=== PATIENT | female | born 1995 | race Caucasian/White ===

== ENCOUNTER 2019-06-10 06:54 | Day surgery (SDC) | payer OTHER ==
[~2019-06-10] VITALS: Ht 162.6 cm; Wt 59.2 kg
[2019-06-10 07:44] VITALS: BP 117/75; PULSE 73; TEMP 97.4
[2019-06-10 09:57] VITALS: BP 111/69; PULSE 83
--- NOTE | 2019-06-10 09:57 | NUR ---
Patient returns to room 3 per cart from surgery and is restless, moving around on the cart, pulling at IV tubing and blood pressure cuff. Shivering and warm blankets on. Mother in room and attempts to calm patient. Dr. Rock in the room by cart. Temp 98.9 and room air sats 90%. Will not leave pulse ox on finger. Opens eyes briefly and looks around the room. Siderails up x2 nurse stays at bedside. Mother states that the patient wakes up badly from anesthesia.
[2019-06-10 10:12] VITALS: BP 104/62; PULSE 86
--- NOTE | 2019-06-10 10:12 | NUR ---
Calmer now and is oriented to person and place. Keeps eyes closed and answers questions. Mother remains in room. IV fluids infusing. Right foot dressing dry.
[2019-06-10 10:27] VITALS: BP 96/63; PULSE 74
--- NOTE | 2019-06-10 10:27 | NUR ---
Resting calmly and quietly on the cart with eyes closed. Mother in the room. Foot of cart elevated. Post on shoe on the right foot.
[2019-06-10] MEDS ORDERED: NORCO 325 MG-51 TAB PO (10:31)
[2019-06-10 10:42] VITALS: BP 103/57; PULSE 71
--- NOTE | 2019-06-10 10:42 | NUR ---
Awake and alert. Room air sats 100%. Sipping on water. Denies pain or nausea.
[2019-06-10 10:57] VITALS: BP 105/77; PULSE 66
--- NOTE | 2019-06-10 10:57 | NUR ---
Eating muffin and drinking water. Continues to deny pain or nausea. States that she feels sleepy.
--- NOTE | 2019-06-10 11:20 | NUR ---
Assisted up to the bathroom and ambulates with one person and post-op shoe on. Tolerates activity well and dressing remains dry on the right foot. Returns to room and IV discontinued. Site is free of redness. Patient dresses self and mother remains in the room.
--- NOTE | 2019-06-10 11:39 | NUR ---
Dismissal instructions signed and voices understanding of follow up and home cares.
--- NOTE | 2019-06-10 11:43 | NUR ---
Patient dismissed to home driven by mother and taken to the front door per wheelchair and assisted into car by this RN with dismissal instructuons in hand. Provided script for [facility].
== END 2019-06-10 11:43 | disposition home or self-care (01) ==
LOC: SDCO 06:54
DX: M20.11 Hallux valgus (acquired), right foot (principal); M21.611 Bunion of right foot; Z88.1 Allergy status to other antibiotic agents; Z83.3 Family history of diabetes mellitus; J45.990 Exercise induced bronchospasm; Z82.3 Family history of stroke; Z82.49 Family history of ischemic heart disease and other diseases of the circulatory system; Z84.1 Family history of disorders of kidney and ureter; Z80.8 Family history of malignant neoplasm of other organs or systems; Z80.0 Family history of malignant neoplasm of digestive organs; Z82.62 Family history of osteoporosis
CPT/HCPCS: J1885; J2405; J2704; J3010; J7120

== ENCOUNTER 2020-09-12 10:14 | Emergency (ER) | payer OTHER ==
[~2020-09-12] VITALS: Ht 162.6 cm; Wt 56.8 kg
[~2020-09-12 10:14] MED LIST: NORCO 325 MG-51 TAB PO
[2020-09-12 10:15] VITALS: TEMP 97.6
[2020-09-12] MEDS ORDERED: PRENATAL TABLET PO (10:19)
[2020-09-12] MEDS ORDERED: ZOFRAN 4MG T4 MG/TAB PO (10:19)
[2020-09-12 10:48] LABS: COLLECTION METHOD CLEAN CATCH
[2020-09-12 10:56] LABS: BASO % 0.5 % (0.0-2.0); EOS % 0.2 % (0-4.0); GRAN # 7.3 (1.4-6.5); GRAN % 82.4 % (42.2-75.2); HEMATOCRIT 38.3 % (37.0-47.0); HEMOGLOBIN 13.5 g/dl (12.5-16.0); LYMPH % 11.6 % (20.0-51.0); MEAN CELL VOLUME 89 fl (80.0-100.0); MEAN CORPUSCULAR HEMOGLOBIN 31 pg (27.0-31.0); MEAN CORPUSCULAR HGB CONC 35 g/dl (33.0-37.0); MEAN PLATELET VOLUME 10.3 fl (7.4-10.4); MONO # 0.4 (0.1-0.6); MONO % 4.8 % (1.7-9.3); PLATELET COUNT 214 K/mm3 (130-400); RED BLOOD COUNT 4.33 M/mm3 (4.10-5.30); REDCELL DISTRIBUTION WIDTH-CV 12.2 % (11.5-14.5)
[2020-09-12 11:11] LABS: ALBUMIN 3.9 gm/dL (3.5-5.0); BILIRUBIN,TOTAL 0.6 mg/dL (0.0-1.0); CALCIUM 9.3 mg/dL (8.4-10.2); CREATININE, serum 0.48 (0.52-1.25); POTASSIUM 3.6 mmol/L (3.4-5.0); TOTAL PROTEIN 7.2 gm/dL (6.4-8.2)
[2020-09-12 11:12] LABS: MUCOUS Present /lpf; PH 6 (5-8); URINE APPEARANCE Hazy; URINE BACTERIA Rare /hpf; URINE BILIRUBIN Negative (NEGATIVE); URINE BLOOD Negative (NEGATIVE); URINE COLOR Yellow; URINE GLUCOSE Negative (NEGATIVE); URINE KETONE 1+ (NEGATIVE); URINE LEUKOCYTE ESTERASE Trace (NEGATIVE); URINE NITRATE Negative (NEGATIVE); URINE PROTEIN(semi-quant) 2+ (NEGATIVE); URINE RBC 0-2 /hpf
[2020-09-12 11:47] VITALS: BP 91/57; PULSE 87
== END 2020-09-12 12:00 | disposition home or self-care (01) ==
LOC: COL.ER 10:14
PROVIDERS: Physician Assistant
DX: O99.352 Diseases of the nervous system complicating pregnancy, second trimester (principal); R55 Syncope and collapse; O26.892 Other specified pregnancy related conditions, second trimester; E86.0 Dehydration; Z88.1 Allergy status to other antibiotic agents; Z3A.15 15 weeks gestation of pregnancy
CPT/HCPCS: J2765; J7030

== ENCOUNTER → 2020-11-29 | Outpatient (CLI) | payer OTHER ==
[~2020-11-29] MED LIST changes: +MOTRIN 800800 MG/TAB PO; +NATURAL IRON65 MG; +PRENATAL TABLET PO; +PRILOTC; +ZOFRAN 4MG T4 MG/TAB PO
== END ==
LOC: COL.CARD 11:17
DX: R55 Syncope and collapse (principal)

== ENCOUNTER 2020-12-12 11:04 | Emergency (ER) | payer OTHER ==
[~2020-12-12] VITALS: Ht 162.6 cm; Wt 63.6 kg
[~2020-12-12 11:04] MED LIST changes: -MOTRIN 800800 MG/TAB PO; -NATURAL IRON65 MG; -PRILOTC
[2020-12-12 11:20] VITALS: TEMP 98.3
[2020-12-12 12:07] LABS: MEAN CELL VOLUME 89 fl (80.0-100.0); MEAN CORPUSCULAR HEMOGLOBIN 30 pg (27.0-31.0); MEAN CORPUSCULAR HGB CONC 33 g/dl (33.0-37.0); MEAN PLATELET VOLUME 10.5 fl (7.4-10.4); PLATELET COUNT 204 K/mm3 (130-400); REDCELL DISTRIBUTION WIDTH-CV 12.1 % (11.5-14.5)
[2020-12-12 12:18] LABS: ALBUMIN 3.3 gm/dL (3.5-5.0); BILIRUBIN,TOTAL 0.3 mg/dL (0.0-1.0); CALCIUM 9.1 mg/dL (8.4-10.2); CREATININE, serum 0.39 (0.52-1.25); POTASSIUM 3.6 mmol/L (3.4-5.0); TOTAL PROTEIN 6.2 gm/dL (6.4-8.2)
[2020-12-12 12:19] LABS: HEMATOCRIT 32.9 % (37.0-47.0)
[2020-12-12 12:23] LABS: BAND 18 % (0-10); LYMPHOCYTE 18 % (20.0-51.0); NEUTROPHILS 59 % (42.0-75.2); PLATELET ESTIMATE NORMAL (NORMAL)
--- NOTE | 2020-12-12 13:30 | NUR ---
heart monitor on. heart rate 140s with accelerations noted. No decels noted. Denies any contractions.
[2020-12-12 14:38] VITALS: BP 112/68; PULSE 89
== END 2020-12-12 14:39 | disposition home or self-care (01) ==
LOC: COL.ER 11:04
PROVIDERS: Personal Emergency Response Attendant
DX: O99.280 Endocrine, nutritional and metabolic diseases complicating pregnancy, unspecified trimester (principal); E86.0 Dehydration; O26.899 Other specified pregnancy related conditions, unspecified trimester; R55 Syncope and collapse; Z3A.00 Weeks of gestation of pregnancy not specified
CPT/HCPCS: J7030

== ENCOUNTER 2021-03-03 06:18 | Inpatient (IN) | payer OTHER, BC ==
[2021-03-03] VITALS (50 sets, daily range): BP systolic 94–146; BP diastolic 52–82; PULSE 72–111; TEMP 97.4–99
[~2021-03-03] VITALS: Ht 162.6 cm; Wt 76.8 kg
--- NOTE | 2021-03-03 06:30 | NUR ---
Admits to L&D for scheduled induction of labor. Accompanied by spouse, Cirilo.
--- NOTE | 2021-03-03 07:07 | NUR ---
Pit start @ 2mU/min after reactive strip obtained.
[2021-03-03 07:11] LABS: BASO % 0.4 % (0.0-2.0); EOS # 0.1 K/mm3 (0.0-0.7); EOS % 0.5 % (0-4.0); GRAN # 6.3 K/mm3 (1.4-6.5); GRAN % 66.4 % (42.2-75.2); HEMOGLOBIN 11.2 g/dl (12.5-16.0); LYMPH # 2.2 K/mm3 (1.2-3.4); LYMPH % 23.5 % (20.0-51.0); MEAN CELL VOLUME 83 fl (80.0-100.0); MEAN CORPUSCULAR HEMOGLOBIN 27 pg (27.0-31.0); MEAN CORPUSCULAR HGB CONC 33 g/dl (33.0-37.0); MEAN PLATELET VOLUME 10.4 fl (7.4-10.4); MONO # 0.8 K/mm3 (0.1-0.6); MONO % 8.3 % (1.7-9.3); PLATELET COUNT 224 K/mm3 (130-400); RED BLOOD COUNT 4.11 M/mm3 (4.10-5.30); REDCELL DISTRIBUTION WIDTH-CV 13.4 % (11.5-14.5)
[2021-03-03] MEDS ORDERED: NATURAL IRON65 MG (07:11)
[2021-03-03 07:12] LABS: HEMATOCRIT 34.1 % (37.0-47.0)
[2021-03-03] MEDS ORDERED: PRILOTC (07:12)
--- NOTE | 2021-03-03 08:06 | NUR ---
Assisted up to BR @ this time.
--- NOTE | 2021-03-03 08:17 | NUR ---
Note late deceleration @ 0815. Upon entrance to room @ 0817, note patient in supine position. Education provided on making sure to never be completely flat on back. Repositioned to left lateral at this time.
--- NOTE | 2021-03-03 09:10 | NUR ---
Up to BR @ this time.
--- NOTE | 2021-03-03 10:04 | NUR ---
1004- here. 1005-AROM by , clear fluid.
--- NOTE | 2021-03-03 10:40 | NUR ---
Assisted up to BR @ this time.
--- NOTE | 2021-03-03 11:15 | NUR ---
Assited up to BR @ this time.
--- NOTE | 2021-03-03 12:02 | NUR ---
Assisted up to BR @ this time.
--- NOTE | 2021-03-03 12:30 | NUR ---
Requests epidural @ this time. LR bolus begun. 1232-Patient assisted up to bathroom. 1235-CYNDI Page, notified.
--- NOTE | 2021-03-03 12:30 | NUR ---
Up to BR prior to epidural placement.
--- NOTE | 2021-03-03 13:03 | NUR ---
Repositioned to right lateral with peanut ball.
--- NOTE | 2021-03-03 13:12 | NUR ---
Repositioned from right lateral to left lateral with peanut ball.
--- NOTE | 2021-03-03 13:24 | NUR ---
Ephedrine 10 mg administered by this freelance writer at this time with explanation to patient et spouse. Verbalize understanding.
--- NOTE | 2021-03-03 14:03 | NUR ---
scalp electrode placed by this automobile service writer with explanation to patient. Verblizes understanding.
--- NOTE | 2021-03-03 14:20 | NUR ---
Roles here for evaluation. SVE 5-0. Patient repositioned from sitting upright in jonny position to right lateral with peanut ball.
--- NOTE | 2021-03-03 14:55 | NUR ---
Rate of pitocin decreased from 20 mU/min to 10mU/min at this time. Repositioned to left lateral with peanut ball, but quickly repositioned to wedged right after, after noting prolonged deceleration. notified.
--- NOTE | 2021-03-03 15:07 | NUR ---
Pit off @ this time per verbal order. Note has reviewed the strip, updated to latest SVE.
--- NOTE | 2021-03-03 15:37 | NUR ---
Pit restart @ 6mU/min per 's verbal order, after noting patient still has cervix remaining.
--- NOTE | 2021-03-03 16:16 | NUR ---
First push attempt with instruction.
--- NOTE | 2021-03-03 16:40 | NUR ---
Repositioned in jonny position to encourage descent of head.
--- NOTE | 2021-03-03 16:40 | NUR ---
Pushing efforts paused at this time. Kaylee Bianchi CRNA, in to turn epidural pump down, as noted patient reports she can't feel anything. Pushing efforts not effective. Will allow to labor down. notified.
--- NOTE | 2021-03-03 16:55 | NUR ---
Repositioned for right lying side release. This journalists and other writers remains in room with patient.
--- NOTE | 2021-03-03 17:03 | NUR ---
Repositioned in left lying side release.
--- NOTE | 2021-03-03 17:09 | NUR ---
Repositioned in exaggerated runner's on left side, using peanut ball.
--- NOTE | 2021-03-03 18:15 | NUR ---
Roles here for delivery. Nursery nurse notified.
--- NOTE | 2021-03-03 18:21 | NUR ---
182-Spontaneous vaginal delivery of head by . Double nuchal reduced prior to delivery of shoulders. Note patient sobbing, not giving any pushing efforts after delivery of head, resulting in 30 second shoulder dystocia. 182-Spontaneous vaginal delivery of male infant by at this time. 182-Spontaneous vaginal delivery of placenta by . Pit bolus begun immediately following. repairs small 2nd degree perineal laceration with 2-[address]-1. Bedside report given to DIPAK Brumfield, who will resume care from this point forward.
[2021-03-03] MEDS ORDERED: MOTRIN 800800 MG/TAB PO (22:17)
[2021-03-04 02:30] VITALS: BP 97/57; PULSE 85; TEMP 97.9
[2021-03-04 08:30] VITALS: BP 107/58; PULSE 97; TEMP 97.8
--- NOTE | 2021-03-04 11:15 | NUR ---
Sample Stitcher offered congrats to patient while spouse was in room.
[2021-03-04 13:00] VITALS: BP 107/61; PULSE 69; TEMP 98.4
[2021-03-04 17:00] VITALS: BP 103/64; PULSE 80; TEMP 98.1
[2021-03-04 19:15] VITALS: BP 105/62; PULSE 69; TEMP 97.9
[2021-03-05 07:15] VITALS: BP 115/65; PULSE 75; TEMP 98.3
== END 2021-03-05 13:27 | disposition home or self-care (01) | DRG 807 ==
LOC: LDR 06:18 → OB 14:41
PROVIDERS: ADMIT Obstetrics & Gynecology
PROC: 10E0XZZ Delivery of Products of Conception, External Approach (ICD-10-PCS; principal; 2021-03-03)
PROC: 0KQM0ZZ Repair Perineum Muscle, Open Approach (ICD-10-PCS; 2021-03-03)
PROC: 10907ZC Drainage of Amniotic Fluid, Therapeutic from Products of Conception, Via Natural or Artificial Opening (ICD-10-PCS; 2021-03-03)
PROC: 3E033VJ Introduction of Other Hormone into Peripheral Vein, Percutaneous Approach (ICD-10-PCS; 2021-03-03)
DX: O99.892 Other specified diseases and conditions complicating childbirth (principal); Z37.0 Single live birth; O66.0 Obstructed labor due to shoulder dystocia; R55 Syncope and collapse; O69.2XX0 Labor and delivery complicated by other cord entanglement, with compression, not applicable or unspecified; O69.81X0 Labor and delivery complicated by cord around neck, without compression, not applicable or unspecified; O70.1 Second degree perineal laceration during delivery; Z3A.39 39 weeks gestation of pregnancy
CPT/HCPCS: J2590; J7120

== ENCOUNTER 2022-07-02 09:59 | Outpatient (CLI) | payer OTHER, BC ==
[~2022-07-02] VITALS: Ht 162.6 cm; Wt 78.6 kg
[~2022-07-02 09:59] MED LIST changes: +MOTRIN 800800 MG/TAB PO; +NATURAL IRON65 MG; +PRILOTC; +TYLENOL 500MG500 MG PO
[2022-07-02 10:30] VITALS: BP 141/70; PULSE 129; TEMP 98.4
--- NOTE | 2022-07-02 10:30 | NUR ---
1000- Pt arrives on unit via wheelchair with complaints of left flank pain and vomitting. Pt changes into gown. 1010- Pt into bed. EFM x2 for twins and TOCO on and tracing. O2 sat monitor on and tracing maternal HR. Assessments completed. Pt states she was at the hospital yesterday for same issues but having no improvement. States they diagnosed her with a UTI, gave her one dose of antibiotic PO and Zofran then sent her home with RX for antibiotic. Pt states she has not filled RX since she called the office this morning and they told her to come back to hospital. Pt states she has vomitted 4 times since midnight, not keeping fluids or food down. Pt states her back pain is constant but is intermittantly worse. Pt rates pain 10/10. Pt denies VB, LOF, UCs. States she feels abd tightening but not painful. Pt also complains of constipation, states today is day 5 of no BM. Pt appears uncomfortable, unable to sit still in bed. Difficult to monitor babies due to maternal movement.
[2022-07-02 11:00] VITALS: PULSE 123
[2022-07-02 11:22] LABS: COLLECTION METHOD CLEAN CATCH
[2022-07-02] MEDS ORDERED: MACROBID 1100 MG/CAP PO (11:28)
[2022-07-02] MEDS ORDERED: ZOFRAN ODT4 MG PO (11:28)
[2022-07-02 11:30] LABS: HEMOGLOBIN 10.9 g/dl (12.5-16.0); MEAN CELL VOLUME 79 fl (80.0-100.0); MEAN CORPUSCULAR HEMOGLOBIN 25 pg (27-31); MEAN CORPUSCULAR HGB CONC 31 g/dl (33.0-37.0); MEAN PLATELET VOLUME 10.5 fl (7.4-10.4); PLATELET COUNT 262 K/mm3 (130-400); RED BLOOD COUNT 4.38 M/mm3 (4.10-5.30); REDCELL DISTRIBUTION WIDTH-CV 18.6 % (11.5-14.5)
--- NOTE | 2022-07-02 11:30 | NUR ---
FHR tracing intermittently due to maternal position and frequent movment. 1130- Pt verbalizes improvement in pain after Morphine, states 3/10.
[2022-07-02 11:31] LABS: HEMATOCRIT 34.7 % (37.0-47.0)
[2022-07-02 11:40] LABS: URINE APPEARANCE Clear (CLEAR/HAZY); URINE COLOR Yellow (YELLOW); URINE GLUCOSE Negative (NEGATIVE); URINE KETONE 4+ (NEGATIVE); URINE PROTEIN(semi-quant) TRACE (NEGATIVE)
[2022-07-02 11:41] LABS: URINE BLOOD TRACE-INTACT (NEGATIVE); URINE NITRATE Negative (NEGATIVE); URINE UROBILINOGEN 0.2 E.U/dL (0.2-1.0)
[2022-07-02 11:43] LABS: MUCOUS Present (NOT PRESENT); SQUAMOUS EPITHELIAL 0-2 /hpf (0-10); URINE BACTERIA Rare /hpf (NONE SEEN)
[2022-07-02 11:48] LABS: ALBUMIN 2.9 gm/dL (3.5-5.0); BILIRUBIN,TOTAL 1.1 mg/dL (0.2-1.2); CALCIUM 8.9 mg/dL (8.4-10.2); CREATININE, serum 0.52 mg/dL (0.57-1.11); TOTAL PROTEIN 6.4 gm/dL (6.2-8.1)
--- NOTE | 2022-07-02 12:30 | NUR ---
1217- Pt up to void. 1220- US tech at bedside. Pt assisted back into bed, EFM and TOCOs removed. 1245- Pt up to void. 1249- Pt back to bed. EFMs and TOCO on and tracing.
[2022-07-02 12:43] LABS: ANISOCYTOSIS 2+; HYPOCHROMIA 2+; LYMPHOCYTE 19 % (20.0-51.0); MICROCYTOSIS 1+; NEUTROPHILS 73 % (42.0-75.2); PLATELET ESTIMATE NORMAL (NORMAL)
[2022-07-02 13:00] VITALS: BP 127/79; PULSE 125; TEMP 98.1
[2022-07-02] MEDS ORDERED: PERCOCET 325 MG1 TA2 PO (13:54)
[2022-07-02 14:03] VITALS: BP 110/68; PULSE 127
--- NOTE | 2022-07-02 14:03 | NUR ---
1403- Discussed plan to discharge home, medications, labor precautions, returning to hospital if needed, Follow-up tomorrow at [facility] as needed. Pt denies questions at this time. 1415- IV removed without difficulty, Pt up to change into street clothes. 1425- Pt ambulates off unit in stable condition.
== END 2022-07-02 14:25 | disposition home or self-care (01) ==
LOC: LDRO 09:59
PROVIDERS: Obstetrics & Gynecology
DX: O21.9 Vomiting of pregnancy, unspecified (principal); O26.893 Other specified pregnancy related conditions, third trimester; M54.9 Dorsalgia, unspecified; Z3A.36 36 weeks gestation of pregnancy
CPT/HCPCS: J0290; J1580; J2270; J2405; J7120